=== PATIENT | male | born 1955 | race Caucasian/White ===

== ENCOUNTER → 2016-03-29 | Outpatient (CLI) | payer OTHER ==
[2016-03-29 12:33] LABS: Basophils # (auto) 0 uL; Basophils % (auto) 0.7 % (0.0-2.0); DEFINITIVE VIEW TRANSMISSION; Eosinophils # (auto) 0.3 uL; Hematocrit 45.6 % (41.0-53.0); Hemoglobin 15.1 g/dL (13.5-17.5); Lymphocytes # (auto) 1.7 uL; Lymphocytes % (auto) 30.3 % (10.0-50.0); Mean Corpuscular Hemoglobin 26.1 pg (28.0-32.0); Mean Corpuscular Hgb Conc. 33.1 g/dL (32.0-36.0); Mean Corpuscular Volume 78.8 fL (80.0-100.0); Mean Platelet Volume 6.4 fL (7.4-10.4); Monocytes # (auto) 0.4 uL; Neutrophils # (auto) 3.1 uL; Platelet Count (auto) 249 10^3/uL (140-450); Red Cell Distribution Width 14.3 % (11.6-16.0); White Blood Cell 5.5 10^3/uL (4.4-10.8)
[2016-03-29 13:11] LABS: Albumin 4.7 g/dL (3.4-5.0); BUN/Creatinine Ratio 14.1; Bilirubin, Total 0.5 mg/dL (0.2-1.0); Calcium 9.3 mg/dL (8.5-10.1); Potassium 4.4 mmol/L (3.5-5.1); Total Protein 7.5 g/dL (6.4-8.2)
== END | disposition home or self-care (01) ==
LOC: LAB 11:16
PROVIDERS: ATTEND Family Medicine
DX: E78.4 Other hyperlipidemia (principal); I10 Essential (primary) hypertension; E11.9 Type 2 diabetes mellitus without complications
CPT/HCPCS: 36415; 80053; 80061; 83036; 84153; 85025

== ENCOUNTER → 2017-06-10 | Outpatient (CLI) | payer OTHER ==
[2017-06-10 09:53] LABS: Eosinophils # (auto) 0.2 uL; Hemoglobin 15.7 g/dL (13.5-17.5); Neutrophils # (auto) 3.9 uL; Nucleated Red Blood Cells % 0.1 %; Red Cell Distribution Width 14.3 % (11.8-14.3)
[2017-06-10 09:55] LABS: Basophils # (auto) 0.1 uL; Eosinophils % (auto) 2.7 % (0.0-7.0); Hematocrit 45.7 % (41.0-53.0); Lymphocytes # (auto) 1.3 uL; Lymphocytes % (auto) 22.8 % (10.0-50.0); Mean Corpuscular Hemoglobin 27.2 pg (28.0-32.0); Mean Corpuscular Hgb Conc. 34.3 g/dL (32.0-36.0); Mean Corpuscular Volume 79.3 fL (80.0-100.0); Monocytes # (auto) 0.3 uL; Monocytes % (auto) 5.8 % (0.0-12.0); Neutrophils % (auto) 67.7 % (37.0-80.0); Platelet Count (auto) 232 10^3/uL (140-450); Red Blood Cells 5.76 10^6/uL (4.5-5.90); White Blood Cell 5.7 10^3/uL (4.4-10.8)
[2017-06-10 09:58] LABS: Urine Bacteria NONE SEEN /hpf (None Seen); Urine Blood Negative /uL (Negative); Urine Specific Gravity 1.005 (1.001-1.035); Urine WBC 1 /hpf (0 - 3)
[2017-06-10 10:26] LABS: BUN/Creatinine Ratio 11.2; Bilirubin, Total 0.5 mg/dL (0.2-1.0); Calcium 8.9 mg/dL (8.5-10.1); Potassium 3.8 mmol/L (3.5-5.1); Total Protein 8.1 g/dL (6.4-8.2)
== END | disposition home or self-care (01) ==
LOC: LAB 09:16
PROVIDERS: ATTEND Family Medicine
DX: I10 Essential (primary) hypertension (principal); E11.9 Type 2 diabetes mellitus without complications; F33.0 Major depressive disorder, recurrent, mild; E78.4 Other hyperlipidemia
CPT/HCPCS: 36415; 80053; 80061; 81001; 82043; 83036; 84153; 84443; 85025

== ENCOUNTER → 2017-12-26 | Outpatient (CLI) | payer OTHER | END | disposition home or self-care (01) | LOC: LAB 10:44 | PROVIDERS: ATTEND Urology | DX: E11.69 Type 2 diabetes mellitus with other specified complication (principal) | CPT/HCPCS: 84402; 84403 ==

== ENCOUNTER → 2018-04-30 | Outpatient (CLI) | payer OTHER ==
[2018-04-30 12:48] LABS: Urine WBC None Seen /hpf (0 - 3)
[2018-04-30 12:55] LABS: Basophils % (auto) 0.7 % (0.0-2.0); Eosinophils # (auto) 0.2 uL; Hematocrit 45.5 % (41.0-53.0); Lymphocytes # (auto) 1.8 uL; Monocytes # (auto) 0.5 uL; Monocytes % (auto) 7.5 % (0.0-12.0); Neutrophils # (auto) 4.7 uL; Nucleated Red Blood Cells % 0.1 %; White Blood Cell 7.3 10^3/uL (4.4-10.8)
[2018-04-30 12:58] LABS: Basophils # (auto) 0 uL; Eosinophils % (auto) 2.8 % (0.0-7.0); Hemoglobin 15.3 g/dL (13.5-17.5); Lymphocytes % (auto) 24.8 % (10.0-50.0); Mean Corpuscular Hemoglobin 26.6 pg (28.0-32.0); Mean Corpuscular Hgb Conc. 33.7 g/dL (32.0-36.0); Mean Corpuscular Volume 78.8 fL (80.0-100.0); Neutrophils % (auto) 64.2 % (37.0-80.0); Platelet Count (auto) 212 10^3/uL (140-450); Red Blood Cells 5.77 10^6/uL (4.5-5.90); Red Cell Distribution Width 14.7 % (11.8-14.3); Urine Amorphous Crystal FEW /hpf (None Seen); Urine Bacteria NONE SEEN /hpf (None Seen); Urine Blood Negative /uL (Negative); Urine Specific Gravity 1.011 (1.001-1.035)
[2018-04-30 13:31] LABS: Albumin 4.6 g/dL (3.4-5.0); BUN/Creatinine Ratio 16.9; Calcium 9.1 mg/dL (8.5-10.1)
[2018-04-30 13:36] LABS: Bilirubin, Total 0.3 mg/dL (0.2-1.0); Total Protein 7.7 g/dL (6.4-8.2)
[2018-04-30 13:46] LABS: Prostate Specific Antigen 3.5 ng/mL (0.0-4.0)
== END | disposition home or self-care (01) ==
LOC: LAB 12:14
PROVIDERS: ATTEND Family Medicine
DX: I10 Essential (primary) hypertension (principal); E11.9 Type 2 diabetes mellitus without complications; E78.2 Mixed hyperlipidemia
CPT/HCPCS: 36415; 80053; 80061; 81001; 82043; 82607; 83036; 84153; 85025